=== PATIENT | female | born 1940 | race Caucasian/White ===

== ENCOUNTER 2023-03-30 11:28 | Inpatient (IN) | payer MEDICARE ==
[2023-03-30] MEDS ORDERED: HYDROcodone/Acetaminophen 10/325 mg Tablet ONE (13:08)
[2023-03-30] MEDS ORDERED: Ondansetron ODT 4 MG TAB PO PRN (15:25)
[2023-03-30] MEDS ORDERED: Ondansetron PF 4 MG/2 ML Vial IVP PRN (15:25)
[2023-03-30 16:06] LABS: #Basophils 0.1 thou/uL (0.0-0.2); #Eosinphils 0.9 thou/uL (0.0-0.7); #Monocytes 0.8 thou/uL (0.11-0.59); #Neutrophils 5.5 thou/uL (1.40-6.50); %Basophils 0.6 % (0.0-1.0); %Eosinophils 9.8 % (0.0-10.0); %Lymphocytes 16.6 % (21.0-51.0); %Monocytes 9.2 % (0.0-10.0); %Neutrophils 63.6 % (42.0-75.0); Hematocrit 34.2 % (36.0-47.0); Mean Corpuscular HGB CONC 32.2 g/dL (32.0-36.0); Mean Corpuscular Hemoglobin 28.1 pg (27.0-31.0); Mean Corpuscular Volume 87.5 fl (78.0-98.0); Platelet Count 215 10x3/uL (130-400); RBC Distribution Width 14.4 % (11.5-14.5); Red Blood Cell (RBC) Count 3.91 mill/uL (4.20-5.40); White Blood Cell (WBC) Count 8.7 10x3/uL (4.8-10.8)
[2023-03-30 16:37] LABS: ALT (SGPT) 13 U/L (8-55); AST (SGOT) 27 U/L (5-34); Albumin 3.8 g/dL (3.4-4.8); Alkaline Phosphatase 107 U/L (40-110); Anion Gap 13 mmol/L (10-20); BUN (Urea Nitrogen) 45 mg/dL (9.8-20.1); Bilirubin, Total 0.4 mg/dL (0.2-1.2); Calc. Creatinine Clearance 0 mL/min (70-130); Calcium 9.1 mg/dL (7.8-10.44); Carbon Dioxide 23 mmol/L (23-31); Chloride 106 mmol/L (98-107); Estimated GFR 35; Globulin 2.9 g/dL (2.4-3.5); Glucose 101 mg/dL (83-110); Potassium 4.7 mmol/L (3.5-5.1); Protein, Total 6.7 g/dL (5.8-8.1); Sodium 137 mmol/L (136-145)
[2023-03-30 17:59] VITALS: BMI 22.7
[2023-03-30] MEDS: Acetaminophen 500 MG TAB PO SCH ×2 (18:11→20:14)
[2023-03-30] MEDS: Ketorolac Tromethamine 30 MG (1 mL) VIAL IVP SCH ×2 (18:11→23:58)
[2023-03-30] MEDS: FLUoxetine HCl 20 MG CAP PO SCH (20:14)
[2023-03-30] MEDS: tiZANidine HCl 4 MG TAB PO SCH (20:14)
[2023-03-30] MEDS: Valsartan 80 MG TAB PO SCH (20:15)
[2023-03-30] MEDS: traZODone HCl 50 MG TAB PO SCH (20:15)
[2023-03-30] MEDS ORDERED: Enoxaparin 40 MG (0.4 mL) SYRINGE SC SCH (21:00)
[2023-03-30] MEDS ORDERED: Famotidine 20 MG TAB PO SCH (21:00)
[2023-03-31] MEDS: Morphine 4 MG/ML VIAL SLOW IVP PRN (00:27)
[2023-03-31] MEDS: Ketorolac Tromethamine 30 MG (1 mL) VIAL IVP SCH ×3 (05:53→17:57)
[2023-03-31] MEDS: Levothyroxine Sodium 50 MCG TAB PO SCH (06:07)
[2023-03-31] MEDS ORDERED: Clindamycin/D5W 900 MG in Premix 1 BAG IVPB SCH (07:30)
[2023-03-31] MEDS: Acetaminophen 500 MG TAB PO SCH ×4 (09:36→20:09)
[2023-03-31] MEDS ORDERED: fentaNYL 50 mcg/mL 1 mL Vial ONE ×2 (12:22→12:44)
[2023-03-31] MEDS ORDERED: Ropivacaine 0.5% HCl/PF (150 MG/30 ML VIAL) ONE (12:23)
[2023-03-31] MEDS ORDERED: Midazolam HCl 2 mg/2 ml Vial ONE (12:23)
[2023-03-31] MEDS ORDERED: Clindamycin/D5W 900 mg/50 ml Premix Bag ONE (12:41)
[2023-03-31] MEDS ORDERED: PROPOFOL 20 ML ONE (12:44)
[2023-03-31] MEDS ORDERED: Lidocaine 1% PF 5 ML VIAL ONE (12:44)
[2023-03-31] MEDS ORDERED: Dexamethasone 20 MG/5 ML VIAL ONE (12:48)
[2023-03-31] MEDS ORDERED: Ondansetron PF 4 MG/2 ML Vial ONE (12:48)
[2023-03-31] MEDS ORDERED: ePHEDrine Sulfate 50 MG/10 ML VIAL ONE (13:22)
[2023-03-31] MEDS ORDERED: Promethazine HCl 25 MG/ML VIAL IM PRN (13:54)
[2023-03-31] MEDS ORDERED: Ondansetron HCl/PF 4 MG/2 ML Vial IVP PRN (13:54)
[2023-03-31] MEDS ORDERED: Ketorolac Tromethamine 30 MG (1 mL) VIAL ONE (14:05)
[2023-03-31] MEDS: Sodium Chloride 0.9% 1,000 ML IV SCH ×3 (15:59→23:00)
[2023-03-31] MEDS: Valsartan 80 MG TAB PO SCH (20:08)
[2023-03-31] MEDS: Clindamycin/D5W 900 MG in Premix 1 BAG IVPB SCH (20:09)
[2023-03-31] MEDS: tiZANidine HCl 4 MG TAB PO SCH (20:11)
[2023-03-31] MEDS: traZODone HCl 50 MG TAB PO SCH (20:11)
[2023-03-31] MEDS: FLUoxetine HCl 20 MG CAP PO SCH (20:11)
[2023-03-31] MEDS: Famotidine 20 MG TAB PO SCH (20:13)
[2023-03-31] MEDS ORDERED: Enoxaparin 30 MG (0.3 mL) SYRINGE SC SCH (21:00)
[2023-04-01] MEDS: Clindamycin/D5W 900 MG in Premix 1 BAG IVPB SCH (05:34)
[2023-04-01] MEDS: Ketorolac Tromethamine 30 MG (1 mL) VIAL IVP SCH ×5 (05:36→23:14)
[2023-04-01] MEDS: Levothyroxine Sodium 50 MCG TAB PO SCH (05:39)
[2023-04-01] MEDS: traMADol HCl 50 MG TAB PO PRN ×3 (09:19→17:29)
[2023-04-01] MEDS: Acetaminophen 500 MG TAB PO SCH ×4 (09:19→21:17)
[2023-04-01] MEDS: Sodium Chloride 0.9% 1,000 ML IV SCH ×3 (09:20→17:31)
[2023-04-01] MEDS: Morphine 4 MG/ML VIAL SLOW IVP PRN (15:13)
[2023-04-01] MEDS: Valsartan 80 MG TAB PO SCH (21:18)
[2023-04-01] MEDS: Famotidine 20 MG TAB PO SCH (21:18)
[2023-04-01] MEDS: traZODone HCl 50 MG TAB PO SCH (21:18)
[2023-04-01] MEDS: tiZANidine HCl 4 MG TAB PO SCH (21:18)
[2023-04-01] MEDS: FLUoxetine HCl 20 MG CAP PO SCH (21:18)
[2023-04-02] MEDS: Sodium Chloride 0.9% 1,000 ML IV SCH ×2 (02:57→15:35)
[2023-04-02] MEDS: Levothyroxine Sodium 50 MCG TAB PO SCH (05:56)
[2023-04-02] MEDS: Ketorolac Tromethamine 30 MG (1 mL) VIAL IVP SCH ×2 (05:56→15:36)
[2023-04-02] MEDS: Acetaminophen 500 MG TAB PO SCH ×3 (09:31→16:32)
[2023-04-02] MEDS: traMADol HCl 50 MG TAB PO PRN ×2 (09:31→16:32)
[2023-04-02 15:20] VITALS: BP 156/87; TEMP 97.9
== END 2023-04-02 22:35 | disposition home or self-care (01) | DRG 494 ==
LOC: ERS 11:28 → SURG A 14:52
PROVIDERS: ADMIT Specialist; ATTEND Specialist
PROC: 0QSG04Z Reposition Right Tibia with Internal Fixation Device, Open Approach (ICD-10-PCS; principal; 2023-03-31)
PROC: 3E033XZ Introduction of Vasopressor into Peripheral Vein, Percutaneous Approach (ICD-10-PCS; 2023-03-31)
DX: S82.51XA Displaced fracture of medial malleolus of right tibia, initial encounter for closed fracture (principal); I10 Essential (primary) hypertension; Z88.0 Allergy status to penicillin; Z98.890 Other specified postprocedural states
CPT/HCPCS: 29505; 36415; 71045; 80053; 85025; 93005; 93010; C1713; J1100; J1650; J1885; J2250; J2270; J2405; J2704; J2795; J3010; J3490; J7050